=== PATIENT | male | born 1965 | race African-American/Black ===

== ENCOUNTER 2022-11-22 05:02 | Inpatient (IN) | payer MEDICARE, OTHER ==
[2022-11-22] MEDS ORDERED: Heparin 10,000 UNITS/ 10 ML VIAL ONE (05:08)
[2022-11-22] MEDS ORDERED: Nitroglycerin 100MG/250ML BOT 0 ML ONE (05:08)
[2022-11-22] MEDS ORDERED: Lidocaine 1% (PF) 30 ML VIAL ONE (05:08)
[2022-11-22 05:34] LABS: #Basophils 0.1 thou/uL (0.0-0.2); #Eosinphils 0.1 thou/uL (0.0-0.7); #Lymphocytes 1.7 thou/uL (1.20-3.40); #Monocytes 0.7 thou/uL (0.11-0.59); #Neutrophils 5.3 thou/uL (1.40-6.50); %Basophils 0.9 % (0.0-1.0); %Eosinophils 0.7 % (0.0-10.0); %Lymphocytes 21.7 % (21.0-51.0); %Neutrophils 67.7 % (42.0-75.0); Hemoglobin 13.7 g/dL (14.0-18.0); Mean Corpuscular HGB CONC 34.5 g/dL (32.0-36.0); Mean Corpuscular Hemoglobin 34.3 pg (27.0-31.0); Mean Corpuscular Volume 99.4 fl (78.0-98.0); Mean Platelet Volume 7.9 fL (7.4-10.4); Platelet Count 176 10x3/uL (130-400); White Blood Cell (WBC) Count 7.9 10x3/uL (4.8-10.8)
[2022-11-22 05:37] LABS: INR-International Normal Ratio 1.1; Prothrombin Time 14.5 sec (12.0-14.7)
[2022-11-22 05:42] LABS: PTT 144.8 sec (22.9-36.1)
[2022-11-22 05:49] LABS: ALT (SGPT) 72 U/L (8-55); AST (SGOT) 54 U/L (5-34); Albumin 3.5 g/dL (3.5-5.0); Alkaline Phosphatase 73 U/L (40-110); Anion Gap 9 mmol/L (10-20); BUN (Urea Nitrogen) 19 mg/dL (8.4-25.7); Bilirubin, Total 0.6 mg/dL (0.2-1.2); Calc. Creatinine Clearance 0 mL/min (70-130); Calcium 8.6 mg/dL (7.8-10.44); Carbon Dioxide 24 mmol/L (22-29); Chloride 105 mmol/L (98-107); Estimated GFR 67; Globulin 3.7 g/dL (2.4-3.5); Glucose 104 mg/dL (70-105); Potassium 3.6 mmol/L (3.5-5.1); Protein, Total 7.2 g/dL (6.0-8.3); Sodium 134 mmol/L (136-145)
[2022-11-22] MEDS ORDERED: Lidocaine Viscous Sol 2% 15 ml UD Cup ONE (06:16)
[2022-11-22] MEDS ORDERED: Mag-Al 1200 mg/1200 mg/30 ML UDCUP ONE (06:16)
[2022-11-22] MEDS ORDERED: Nicotine 14 MG PATCH TD PRN (08:02)
[2022-11-22] MEDS ORDERED: traMADol HCl 50 MG TAB PO PRN (08:02)
[2022-11-22] MEDS ORDERED: Acetaminophen 325 MG TAB PO PRN (08:02)
[2022-11-22] MEDS ORDERED: Fentanyl 100 MCG/2 ML VIAL SLOW IVP PRN (08:02)
[2022-11-22] MEDS ORDERED: Metoclopramide HCl 10 MG/2 ML VIAL IVP PRN (08:14)
[2022-11-22] MEDS ORDERED: Iopamidol-370 76% 500 ML 1 ML ONE (10:26)
[2022-11-22] MEDS ORDERED: Pantoprazole 40 MG VIAL ONE (10:37)
[2022-11-22] MEDS: Pantoprazole 40 MG VIAL IVP SCH ×2 (10:58→21:07)
[2022-11-22] MEDS: Sodium Chloride 0.9% 1,000 ML IV SCH ×2 (10:58→21:05)
[2022-11-22 12:10] VITALS: BMI 37.3
[2022-11-22] MEDS: Gabapentin 300 MG CAP PO SCH ×2 (14:58→21:04)
[2022-11-22] MEDS ORDERED: FLU VACC QS2022-23(6MOS UP)/PF 60 MCG/0.5 ML SYRINGE IM ONE (18:00)
[2022-11-23] MEDS: Sodium Chloride 0.9% 1,000 ML IV SCH (05:51)
[2022-11-23] MEDS: Gabapentin 300 MG CAP PO SCH ×3 (08:06→20:19)
[2022-11-23] MEDS: Pantoprazole 40 MG VIAL IVP SCH ×2 (08:06→20:34)
[2022-11-23 08:11] LABS: #Eosinphils 0.1 thou/uL (0.0-0.7); #Lymphocytes 1.3 thou/uL (1.20-3.40); #Monocytes 0.6 thou/uL (0.11-0.59); #Neutrophils 2.5 thou/uL (1.40-6.50); %Basophils 0.4 % (0.0-1.0); %Eosinophils 1.2 % (0.0-10.0); %Lymphocytes 30.2 % (21.0-51.0); %Neutrophils 55.1 % (42.0-75.0); Hemoglobin 13.1 g/dL (14.0-18.0); Mean Corpuscular HGB CONC 33.5 g/dL (32.0-36.0); Mean Corpuscular Hemoglobin 33.6 pg (27.0-31.0); Mean Platelet Volume 8.3 fL (7.4-10.4); Platelet Count 147 10x3/uL (130-400); White Blood Cell (WBC) Count 4.5 10x3/uL (4.8-10.8)
[2022-11-23] MEDS ORDERED: Lidocaine 2% Viscous Solution 10 ML, Aluminum & Magnesium Hydroxide 30 ML SSW PRN (08:15)
[2022-11-23 08:30] LABS: HDL Cholesterol 50 mg/dL (>60 Neg Risk); Triglycerides 64 mg/dL (Less than 150)
[2022-11-23 08:31] LABS: ALT (SGPT) 59 U/L (8-55); AST (SGOT) 46 U/L (5-34); Albumin 3.2 g/dL (3.5-5.0); Alkaline Phosphatase 59 U/L (40-110); Anion Gap 9 mmol/L (10-20); BUN (Urea Nitrogen) 13 mg/dL (8.4-25.7); Bilirubin, Direct 0.4 mg/dL (0.1-0.3); Bilirubin, Total 1.1 mg/dL (0.2-1.2); Calc. Creatinine Clearance 132 mL/min (70-130); Calcium 8.7 mg/dL (7.8-10.44); Carbon Dioxide 25 mmol/L (22-29); Chloride 104 mmol/L (98-107); Estimated GFR 95; Glucose 85 mg/dL (70-105); Lipase 39 U/L (8-78); Potassium 4.1 mmol/L (3.5-5.1); Protein, Total 6.7 g/dL (6.0-8.3); Sodium 134 mmol/L (136-145)
[2022-11-23] MEDS ORDERED: Gabapentin 300 MG CAP ONE (20:13)
[2022-11-23] MEDS ORDERED: Pantoprazole 40 MG VIAL ONE (20:14)
[2022-11-24 04:00] LABS: #Eosinphils 0.1 thou/uL (0.0-0.7); #Lymphocytes 1.7 thou/uL (1.20-3.40); #Monocytes 0.6 thou/uL (0.11-0.59); #Neutrophils 2.1 thou/uL (1.40-6.50); %Basophils 0.8 % (0.0-1.0); %Eosinophils 2.1 % (0.0-10.0); %Lymphocytes 37.5 % (21.0-51.0); %Monocytes 12.9 % (0.0-10.0); %Neutrophils 46.7 % (42.0-75.0); Hemoglobin 12.8 g/dL (14.0-18.0); Mean Corpuscular HGB CONC 32.9 g/dL (32.0-36.0); Mean Corpuscular Hemoglobin 33.4 pg (27.0-31.0); Mean Platelet Volume 9.1 fL (7.4-10.4); Platelet Count 141 10x3/uL (130-400); Red Blood Cell (RBC) Count 3.83 mill/uL (4.70-6.10); White Blood Cell (WBC) Count 4.5 10x3/uL (4.8-10.8)
[2022-11-24 04:19] LABS: ALT (SGPT) 69 U/L (8-55); AST (SGOT) 60 U/L (5-34); Albumin 3.3 g/dL (3.5-5.0); Alkaline Phosphatase 66 U/L (40-110); Anion Gap 10 mmol/L (10-20); BUN (Urea Nitrogen) 15 mg/dL (8.4-25.7); Bilirubin, Total 0.9 mg/dL (0.2-1.2); Calc. Creatinine Clearance 113 mL/min (70-130); Carbon Dioxide 27 mmol/L (22-29); Chloride 102 mmol/L (98-107); Estimated GFR 80; Globulin 3.6 g/dL (2.4-3.5); Glucose 101 mg/dL (70-105); Potassium 3.6 mmol/L (3.5-5.1); Protein, Total 6.9 g/dL (6.0-8.3); Sodium 135 mmol/L (136-145)
[2022-11-24 04:37] LABS: Direct LDL Cholesterol 83 mg/dL (0-99)
[2022-11-24] MEDS: Gabapentin 300 MG CAP PO SCH (08:53)
[2022-11-24] MEDS: Pantoprazole 40 MG VIAL IVP SCH (08:54)
[2022-11-24 09:05] VITALS: TEMP 97.9
== END 2022-11-24 10:45 | disposition home or self-care (01) | DRG 383 ==
LOC: ERS 05:02 → ERHOLD 07:51 → CCU 11:58
PROVIDERS: ADMIT Family Medicine; ATTEND Internal Medicine
PROC: 4A023N7 Measurement of Cardiac Sampling and Pressure, Left Heart, Percutaneous Approach (ICD-10-PCS; principal; 2022-11-22)
PROC: B2111ZZ Fluoroscopy of Multiple Coronary Arteries using Low Osmolar Contrast (ICD-10-PCS; 2022-11-22)
PROC: B2151ZZ Fluoroscopy of Left Heart using Low Osmolar Contrast (ICD-10-PCS; 2022-11-22)
DX: K27.9 Peptic ulcer, site unspecified, unspecified as acute or chronic, without hemorrhage or perforation (principal); K85.90 Acute pancreatitis without necrosis or infection, unspecified; E87.1 Hypo-osmolality and hyponatremia; I10 Essential (primary) hypertension; E78.00 Pure hypercholesterolemia, unspecified; Z96.652 Presence of left artificial knee joint; F17.210 Nicotine dependence, cigarettes, uncomplicated; R94.31 Abnormal electrocardiogram [ECG] [EKG]; D64.9 Anemia, unspecified; Z20.822 Contact with and (suspected) exposure to COVID-19; Z88.6 Allergy status to analgesic agent; Z92.82 Status post administration of tPA (rtPA) in a different facility within the last 24 hours prior to admission to current facility; Z79.899 Other long term (current) drug therapy
CPT/HCPCS: 36415; 71045; 74177; 80048; 80053; 80076; 83690; 83718; 83721; 84478; 85025; 93005; 94760; C9113; J1644; J2001; J7050; Q9967; U0003; U0005